=== PATIENT | female | born 1990 | race Two or more races ===

== ENCOUNTER 2020-01-26 11:37 | Inpatient (IN) | payer MEDICAID, OTHER ==
[~2020-01-26] VITALS: Ht 157.5 cm; Wt 77.5 kg
[2020-01-26 12:37] LABS: Basophils # (auto) 0 10 ^3/uL (0-0.2); Basophils % (auto) 0.2 % (0.0-2.0); Eosinophils # (auto) 0 10 ^3/uL (0-0.8); Eosinophils % (auto) 0.3 % (0.0-7.0); Hematocrit 39.9 % (36.0-46.0); Hemoglobin 13.4 g/dL (12.2-16.2); Lymphocytes # (auto) 1.1 10 ^3/uL (0.4-5.4); Lymphocytes % (auto) 9.9 % (10.0-50.0); Mean Corpuscular Hemoglobin 29.5 pg (28.0-32.0); Mean Corpuscular Hgb Conc. 33.5 g/dL (32.0-36.0); Mean Corpuscular Volume 88.1 fL (80.0-100.0); Monocytes # (auto) 1.1 10 ^3/uL (0-1.3); Monocytes % (auto) 9.8 % (0.0-12.0); Neutrophils % (auto) 79.8 % (37.0-80.0); Nucleated Red Blood Cells % 0.1 %; Platelet Count (auto) 181 10^3/uL (140-450); Red Blood Cells 4.53 10^6/uL (4.0-5.20); Red Cell Distribution Width 14.5 % (11.8-14.3); White Blood Cell 11.2 10^3/uL (4.4-10.8)
[2020-01-26 12:57] LABS: Albumin 3.2 g/dL (3.4-5.0); Calcium 9.1 mg/dL (8.5-10.1); Potassium 3.2 mmol/L (3.5-5.1)
[2020-01-26 13:00] LABS: BUN/Creatinine Ratio 13.6; Bilirubin, Total 0.6 mg/dL (0.2-1.0); Total Protein 7.7 g/dL (6.4-8.2)
[2020-01-26 13:02] LABS: Urine Bacteria MANY /hpf (None Seen); Urine Blood 2+ /uL (Negative); Urine Hyaline Cast FEW /lpf (0 - 2); Urine Mucus MANY (None Seen); Urine Specific Gravity 1.027 (1.001-1.035); Urine WBC 96 /hpf (0 - 5)
[2020-01-26] MEDS ORDERED: cefTRIAXone 1GM/50ML D5W 50 ML IV ONE (13:30)
[2020-01-26] MEDS ORDERED: ENOXAPARIN SOD 80 MG/0.8ML SYRINGE SC ONE (13:30)
[2020-01-26] MEDS ORDERED: NITROGLYCERIN 0.4 MG SL TAB SL PRN ×2 (14:00→20:45)
[2020-01-26] MEDS ORDERED: POTASSIUM CHL 20 Meq TABLET PO ONE (14:00)
[2020-01-26] MEDS ORDERED: MORPHINE SULF INJ 2 MG/ML SYRINGE 1ML IV PRN ×2 (14:00→20:45)
[2020-01-26 14:30] LABS: Alcohol, Urine < 3.0 mg/dL (0-10); Amphetamine Screen, Urine NEGATIVE (NEGATIVE); Barbiturate Scree,Urine NEGATIVE (NEGATIVE); Benzodiazephine Screen, Urine NEGATIVE (NEGATIVE); Cannabinoid Screen, Urine POSITIVE (NEGATIVE); Cocaine Screen, Urine NEGATIVE (NEGATIVE); Opiate Scree,Urine NEGATIVE (NEGATIVE); Phencyclidine Screen, Urine NEGATIVE (NEGATIVE)
[2020-01-26 14:31] LABS: Magnesium 2.5 mg/dL (1.6-2.6)
[2020-01-26] MEDS ORDERED: IOHEXOL 350 MG/ML 100ML IJ ONE ×2 (14:35→15:00)
[2020-01-26 14:47] LABS: INR 0.97 (0.9-1.15); Partial Thromboplastin Time 29.6 sec (23.0-31.2)
[2020-01-26 14:52] LABS: Beta HCG, Quantitative < 1 mlU/mL (1-3); Thyroid Stimulating Hormone 1.22 uIU/mL (0.358-3.74)
[2020-01-26] MEDS ORDERED: LIDOCAINE 2%HCL (LOCAL ANESTH.) INJ 20ML MDV ONE (15:00)
[2020-01-26] MEDS ORDERED: ANGIOMAX 250 MG VIAL IV ONE (15:09)
[2020-01-26] MEDS ORDERED: SODIUM CHL 0.9% 0 ML ONE (15:10)
[2020-01-26] MEDS ORDERED: MIDAZOLAM HCL 1MG/1ML-2 ML VIAL ONE (15:10)
[2020-01-26] MEDS ORDERED: VERAPAMIL 2.5MG/ML INJ 2ML VIAL IV ONE (15:10)
[2020-01-26] MEDS ORDERED: HEPARIN SODIUM (PORCINE) 5000 UNITS/ML 1ML VIAL ONE (15:10)
[2020-01-26] MEDS ORDERED: fentaNYL CITRATE 100 MCG/2 ML VL ONE (15:10)
[2020-01-26] MEDS ORDERED: HYDROcodone-ACET 5/325MG TAB PO PRN (17:15)
[2020-01-26] MEDS ORDERED: ACETAMINOPHEN 325 MG TAB PO PRN ×3 (17:15→20:45)
[2020-01-26 20:38] VITALS: BP 110/72
[2020-01-26] MEDS ORDERED: LORazepam 0.5 MG TAB PO PRN (20:45)
[2020-01-26] MEDS ORDERED: DOCUSATE SOD 100 MG CAP PO PRN (20:45)
[2020-01-26] MEDS ORDERED: ONDANSETRON HCL 4 MG/2 ML VIAL IV PRN (20:45)
[2020-01-26] MEDS ORDERED: ALUM & MAG HYDROX-SIMETH LIQ(MAALOX) 30 ML PO PRN (20:45)
[2020-01-26] MEDS: FAMOTIDINE (10MG/ML) 2ML VL IV SCH (21:41)
[2020-01-26] MEDS: SODIUM CHLORIDE 0.9% 1,000 ML IV SCH (21:41)
[2020-01-26 21:48] VITALS: BP 110/72
[2020-01-26] MEDS: HYDROcodone-ACET 5/325MG TAB PO PRN (21:49)
[2020-01-26] MEDS ORDERED: ATORVASTATIN 20 MG TAB PO SCH (22:00)
[2020-01-26] MEDS ORDERED: IBUP400T21 PO (23:37)
[2020-01-27] MEDS: HYDROcodone-ACET 5/325MG TAB PO PRN (02:16)
[2020-01-27 05:00] VITALS: BP 100/66
[2020-01-27 08:10] VITALS: BP 121/84
[2020-01-27 09:00] VITALS: BP 121/84
[2020-01-27] MEDS: FAMOTIDINE (10MG/ML) 2ML VL IV SCH (09:04)
[2020-01-27] MEDS: MORPHINE SULF INJ 2 MG/ML SYRINGE 1ML IV PRN ×2 (09:13→18:55)
[2020-01-27] MEDS: CEFTRIAXONE SODIUM 2 GM in D5W 5% 50 ML IV SCH (09:13)
[2020-01-27] MEDS ORDERED: predniSONE 20 MG TAB PO SCH (10:00)
[2020-01-27] MEDS ORDERED: METOPROLOL SUCCINATE XL 50 MG TAB PO SCH (10:00)
[2020-01-27] MEDS ORDERED: POTASSIUM CHL 20 Meq TABLET PO SCH (10:00)
[2020-01-27] MEDS ORDERED: ASPirin 81 mg TAB PO SCH ×2 (10:00)
[2020-01-27] MEDS: PANTOPRAZOLE 40 MG TAB PO SCH (10:38)
[2020-01-27] MEDS: COLCHICINE 0.6 MG CAP PO SCH (10:38)
[2020-01-27] MEDS: ASPirin 325 MG TAB PO SCH (10:38)
[2020-01-27] MEDS ORDERED: IBUPROFEN 600 MG TAB PO PRN (12:45)
[2020-01-27 13:38] VITALS: BP 117/77
[2020-01-27] MEDS: SODIUM CHLORIDE 0.9% 1,000 ML IV SCH (15:35)
[2020-01-27 16:39] VITALS: BP 106/62
[2020-01-27 22:00] VITALS: BP 93/59
[2020-01-28] MEDS: MORPHINE SULF INJ 2 MG/ML SYRINGE 1ML IV PRN ×2 (03:16→06:59)
[2020-01-28 04:55] VITALS: BP 111/68
[2020-01-28 06:20] LABS: Basophils # (auto) 0 10 ^3/uL (0-0.2); Basophils % (auto) 0.4 % (0.0-2.0); Eosinophils # (auto) 0.1 10 ^3/uL (0-0.8); Eosinophils % (auto) 0.8 % (0.0-7.0); Hematocrit 36.5 % (36.0-46.0); Hemoglobin 12.4 g/dL (12.2-16.2); Lymphocytes # (auto) 1.9 10 ^3/uL (0.4-5.4); Lymphocytes % (auto) 22.8 % (10.0-50.0); Mean Corpuscular Hemoglobin 29.7 pg (28.0-32.0); Mean Corpuscular Volume 87.5 fL (80.0-100.0); Monocytes # (auto) 1.1 10 ^3/uL (0-1.3); Monocytes % (auto) 12.9 % (0.0-12.0); Neutrophils # (auto) 5.2 10 ^3/uL (1.6-8.6); Neutrophils % (auto) 63.1 % (37.0-80.0); Platelet Count (auto) 220 10^3/uL (140-450); Red Blood Cells 4.17 10^6/uL (4.0-5.20); Red Cell Distribution Width 14.4 % (11.8-14.3); White Blood Cell 8.3 10^3/uL (4.4-10.8)
[2020-01-28 06:41] LABS: Albumin 2.6 g/dL (3.4-5.0); Calcium 8.7 mg/dL (8.5-10.1); Potassium 3.8 mmol/L (3.5-5.1)
[2020-01-28 06:46] LABS: BUN/Creatinine Ratio 10.3; Bilirubin, Total 0.5 mg/dL (0.2-1.0); Total Protein 6.6 g/dL (6.4-8.2)
[2020-01-28] MEDS: SODIUM CHLORIDE 0.9% 1,000 ML IV SCH (06:46)
[2020-01-28] MEDS ORDERED: SUCRALFATE 1 GM/10 ML ORAL SUSP PO SCH (07:00)
[2020-01-28 07:30] VITALS: BP 121/78
[2020-01-28 09:09] VITALS: BP 121/78
[2020-01-28] MEDS: PANTOPRAZOLE 40 MG TAB PO SCH (09:26)
[2020-01-28] MEDS: ASPirin 325 MG TAB PO SCH (09:26)
[2020-01-28] MEDS: COLCHICINE 0.6 MG CAP PO SCH (09:26)
[2020-01-28] MEDS: HYDROcodone-ACET 5/325MG TAB PO PRN (09:51)
[2020-01-28] MEDS: CEFTRIAXONE SODIUM 2 GM in D5W 5% 50 ML IV SCH (09:52)
[2020-01-28 13:13] VITALS: BP 104/61
[2020-01-28 13:22] VITALS: BP 104/61
[2020-01-29 07:58] LABS: Hepatitis B Surface Antigen Negative (Negative)
[2020-01-30 14:23] LABS: Hepatitis A Ab IgM Negative; Hepatitis A Total Antibody Negative; Hepatitis B Core IgM Negative; Hepatitis B Core Total AB Negative
[2020-01-30 14:25] LABS: Hepatitis B Surface Antibody Negative; Hepatitis C Antibody Negative (Negative)
== END 2020-01-28 14:35 | disposition home or self-care (01) | DRG 192 ==
LOC: ER 11:37 → TELE 13:47 → TELE-CENTR 19:40
PROVIDERS: ADMIT Hospitalist; ATTEND Family Medicine
PROC: 4A023N7 Measurement of Cardiac Sampling and Pressure, Left Heart, Percutaneous Approach (ICD-10-PCS; principal; 2020-01-26)
PROC: B2111ZZ Fluoroscopy of Multiple Coronary Arteries using Low Osmolar Contrast (ICD-10-PCS; 2020-01-26)
PROC: B2151ZZ Fluoroscopy of Left Heart using Low Osmolar Contrast (ICD-10-PCS; 2020-01-26)
DX: I31.9 Disease of pericardium, unspecified (principal); I21.4 Non-ST elevation (NSTEMI) myocardial infarction; E66.9 Obesity, unspecified; Z91.011 Allergy to milk products; E78.5 Hyperlipidemia, unspecified; E87.6 Hypokalemia; F12.90 Cannabis use, unspecified, uncomplicated; G43.909 Migraine, unspecified, not intractable, without status migrainosus; I25.119 Atherosclerotic heart disease of native coronary artery with unspecified angina pectoris; K21.9 Gastro-esophageal reflux disease without esophagitis; K29.70 Gastritis, unspecified, without bleeding; K76.0 Fatty (change of) liver, not elsewhere classified; Z82.49 Family history of ischemic heart disease and other diseases of the circulatory system; R79.82 Elevated C-reactive protein (CRP); R79.89 Other specified abnormal findings of blood chemistry; R70.0 Elevated erythrocyte sedimentation rate; N39.0 Urinary tract infection, site not specified; Z68.29 Body mass index [BMI] 29.0-29.9, adult; Z72.89 Other problems related to lifestyle
CPT/HCPCS: 36415; 71046; 71275; 76705; 80053; 80061; 80074; 80307; 81001; 81025; 82728; 83036; 83735; 83880; 84443; 84484; 84702; 85025; 85610; 85652; 85730; 86038; 86141; 86704; 86706; 86708; 86803; 87040; 87086; 87340; 87426; 93005; 93306; 93458; 96365; 96367; 99152; 99153; G0378; J0696; J2250; J3490; J7060